=== PATIENT | male | born 1930 | race Caucasian/White ===

== ENCOUNTER 2017-07-27 11:44 | Emergency (ER) | payer MEDICARE, OTHER ==
[~2017-07-27] VITALS: Ht 177.8 cm; Wt 71.8 kg
[~2017-07-27 11:44] MED LIST: AMLO1TAB21 PO; ASPI81TA42 PO; GLYB5TAB8 PO; IBUP-1506 PO; LATA2.5D15 OU; LISI20TA PO; LORA10TA7 PO; TRAVZOS OS
[2017-07-27 13:33] LABS: BASOPHILS % (AUTO) 0.3 % (0.0-2.0); EOSINOPHILS % (AUTO) 0.1 % (1.0-6.0); HEMATOCRIT 39.4 % (41-53); HEMOGLOBIN 13.7 g/dL (13.5-17.5); LYMPHOCYTES % (AUTO) 16.2 % (22.0-44.0); MEAN CORPUSCULAR HEMOGLOBIN 30.1 pg (26.0-34.0); MEAN CORPUSCULAR HGB CONC 34.8 G/dL (31.0-37.0); MEAN CORPUSCULAR VOLUME 87 fL (80-100); MONOCYTES # (AUTO) 0.5 K/uL (0.1-1.0); MONOCYTES % (AUTO) 7.8 % (2.0-9.0); NEUTROPHILS # (AUTO) 4.5 K/uL (1.8-7.7); NEUTROPHILS % (AUTO) 75.6 % (40.0-70.0); PLATELET COUNT (AUTO) 201 K/uL (150-450); RED BLOOD CELL COUNT(AUTO) 4.55 MIL/uL (4.50-5.90); RED CELL DISTRIBUTION WIDTH 14.9 % (11.5-14.5)
[2017-07-27 13:39] LABS: CALCIUM, TOTAL 8.9 mg/dL (8.8-10.5); CREATININE 1.7 mg/dL (0.60-1.30)
[2017-07-27 13:43] LABS: ALBUMIN 3.6 g/dL (3.4-5.0); BILIRUBIN,TOTAL 0.4 mg/dL (0.1-1.0); TOTAL PROTEIN, SERUM 7.3 g/dL (6.4-8.2)
[2017-07-27 14:11] LABS: APPEARANCE,URINE CLOUDY (CLEAR); GLUCOSE, URINE (UA) 100 mg/dL (NEGATIVE); KETONES,URINE NEGATIVE (NEGATIVE); LEUKOCYTE ESTERASE ,URINE NEGATIVE (NEGATIVE); OCCULT BLOOD,URINE NEGATIVE (NEGATIVE); PROTEIN,URINE POS 1+ (NEGATIVE)
[2017-07-27 14:13] LABS: ADD UA MICROSCOPIC YES
[2017-07-27 14:15] LABS: LACTIC ACID 1.9 mmol/L (0.4-2.0)
[2017-07-27 14:23] LABS: RBC,URINE None Seen /HPF (0-2); SQUAMOUS EPITHELIAL CELL,UR Few /LPF (None Seen); WBC,URINE 0-2 /HPF (0-5)
[2017-07-27 16:53] VITALS: BP 133/64
== END 2017-07-27 17:04 | disposition home or self-care (01) ==
LOC: EMS 11:45
DX: R41.0 Disorientation, unspecified (principal); E11.65 Type 2 diabetes mellitus with hyperglycemia; I12.9 Hypertensive chronic kidney disease with stage 1 through stage 4 chronic kidney disease, or unspecified chronic kidney disease; E11.22 Type 2 diabetes mellitus with diabetic chronic kidney disease; N18.9 Chronic kidney disease, unspecified; Z88.0 Allergy status to penicillin; Z88.8 Allergy status to other drugs, medicaments and biological substances
CPT/HCPCS: 70450; 83605; 93005; 99285